=== PATIENT | male | born 1935 | race Caucasian/White ===

== ENCOUNTER 2018-03-24 18:31 | Inpatient (IN) | payer OTHER ==
[~2018-03-24] VITALS: Ht 170.2 cm; Wt 66.0 kg
[2018-03-24 20:18] LABS: BASOPHIL % 0.2 % (0-2)
[2018-03-24 20:27] LABS: CALCIUM 9.4 mg/dL (8.5-10.1); CARBON DIOXIDE 30.3 mmol/L (21-32); CHLORIDE SERUM 103 mmol/L (98-107); CREATININE SERUM 1.8 mg/dL (0.7-1.3); GLUCOSE SERUM 115 mg/dL (74-106); PLATELET COUNT 115 x10^3mcL (130-400); POTASSIUM SERUM 4.6 mmol/L (3.5-5.1); RED CELL DISTRIBUTION WIDTH 15.3 % (11.5-14.5); SODIUM SERUM 139 mmol/L (136-145)
[2018-03-24 20:32] LABS: ALBUMIN 3.9 g/dL (3.4-5.0); ALKALINE PHOSPHATASE 63 U/L (46-116); ALT/SGPT 33 U/L (16-63); AST/SGOT 31 U/L (15-37); BILIRUBIN TOTAL 0.87 mg/dL (0.20-1.00); TOTAL PROTEIN, SERUM 7.6 g/dL (6.4-8.2)
[2018-03-24 20:42] LABS: T3 TOTAL 0.98 ng/mL
[2018-03-24] MEDS ORDERED: ALDACTONE25 MG PO (21:08)
[2018-03-24] MEDS ORDERED: GOOD SENSE ASPI81 M3 PO (21:09)
[2018-03-24] MEDS ORDERED: LEVOTHYROXIN0.137 MG PO (21:09)
[2018-03-24] MEDS ORDERED: FUROSEMIDE40 MG PO (21:09)
[2018-03-24 21:12] LABS: FREE T4 1.84 ng/dL (0.76-1.46); FREE THYROXINE INDEX 4.8 ug/dL (1.4-4.5); T4(THYROXINE) 12.6 ug/dL (4.7-13.3)
[2018-03-24 21:37] LABS: CHOLESTEROL/HDL RATIO 3.6; MAGNESIUM 2.3 mg/dL (1.8-2.4); PHOSPHOROUS 3.5 mg/dL (2.5-4.9)
[2018-03-24 21:45] VITALS: BP 114/49
[2018-03-24 23:46] LABS: microscopic required? NO
[2018-03-24 23:57] LABS: UA SPECIFIC GRAVITY 1.015 (1.005-1.035); urine erythrocyte NEGATIVE (NEGATIVE)
[2018-03-25 06:33] LABS: BASOPHIL % 0.2 % (0-2)
[2018-03-25 06:45] LABS: CALCIUM 9.1 mg/dL (8.5-10.1); CARBON DIOXIDE 28.5 mmol/L (21-32); CHLORIDE SERUM 105 mmol/L (98-107); CREATININE SERUM 1.8 mg/dL (0.7-1.3); GLUCOSE SERUM 111 mg/dL (74-106); PLATELET COUNT 100 x10^3mcL (130-400); POTASSIUM SERUM 5.1 mmol/L (3.5-5.1); RED CELL DISTRIBUTION WIDTH 14.9 % (11.5-14.5); SODIUM SERUM 140 mmol/L (136-145)
[2018-03-25 09:40] VITALS: BP 116/49
[2018-03-25 09:54] VITALS: BP 116/49
[2018-03-25 16:34] VITALS: BP 110/53
[2018-03-25 21:53] VITALS: BP 114/57
[2018-03-26 05:20] VITALS: BP 106/49
[2018-03-26 06:45] LABS: CALCIUM 8.9 mg/dL (8.5-10.1); CARBON DIOXIDE 29.5 mmol/L (21-32); CHLORIDE SERUM 106 mmol/L (98-107); CREATININE SERUM 1.7 mg/dL (0.7-1.3); GLUCOSE SERUM 101 mg/dL (74-106); MAGNESIUM 2.1 mg/dL (1.8-2.4); PHOSPHOROUS 3.7 mg/dL (2.5-4.9); SODIUM SERUM 140 mmol/L (136-145)
[2018-03-26 07:00] LABS: BASOPHIL % 0.3 % (0-2)
[2018-03-26 07:10] LABS: PLATELET COUNT 92 x10^3mcL (130-400); RED CELL DISTRIBUTION WIDTH 14.9 % (11.5-14.5)
[2018-03-26 08:32] VITALS: BP 110/48
[2018-03-26 12:50] VITALS: BP 103/49
[2018-03-26 16:02] VITALS: BP 99/58
[2018-03-26 20:45] VITALS: BP 101/50
[2018-03-27 05:31] VITALS: BP 100/44
[2018-03-27 06:40] LABS: BASOPHIL % 0.2 % (0-2); RED CELL DISTRIBUTION WIDTH 14.2 % (11.5-14.5)
[2018-03-27 06:54] LABS: PLATELET COUNT 73 x10^3mcL (130-400)
[2018-03-27 07:22] LABS: CALCIUM 8.8 mg/dL (8.5-10.1); CARBON DIOXIDE 27.7 mmol/L (21-32); CHLORIDE SERUM 106 mmol/L (98-107); CREATININE SERUM 1.8 mg/dL (0.7-1.3); GLUCOSE SERUM 131 mg/dL (74-106); MAGNESIUM 1.8 mg/dL (1.8-2.4); PHOSPHOROUS 3.3 mg/dL (2.5-4.9); POTASSIUM SERUM 4.9 mmol/L (3.5-5.1); SODIUM SERUM 141 mmol/L (136-145)
[2018-03-27 08:19] VITALS: BP 95/43
[2018-03-27 12:16] VITALS: BP 99/45
[2018-03-27 16:31] VITALS: BP 101/46
[2018-03-27 21:46] VITALS: BP 101/44
[2018-03-28 05:30] VITALS: BP 100/46
[2018-03-28 06:17] LABS: BASOPHIL % 0.1 % (0-2); RED CELL DISTRIBUTION WIDTH 14.5 % (11.5-14.5)
[2018-03-28 06:28] LABS: CALCIUM 8.5 mg/dL (8.5-10.1); CARBON DIOXIDE 27.2 mmol/L (21-32); CHLORIDE SERUM 103 mmol/L (98-107); CREATININE SERUM 1.8 mg/dL (0.7-1.3); GLUCOSE SERUM 105 mg/dL (74-106); PHOSPHOROUS 3.3 mg/dL (2.5-4.9); SODIUM SERUM 134 mmol/L (136-145)
[2018-03-28 07:36] LABS: PLATELET COUNT 74 x10^3mcL (130-400)
[2018-03-28 10:40] VITALS: BP 97/49
[2018-03-28 14:11] VITALS: BP 97/43
[2018-03-28 18:56] VITALS: BP 103/41
[2018-03-28 20:56] VITALS: BP 98/51
[2018-03-29] VITALS (7 sets, daily range): BP systolic 101–103; BP diastolic 44–58
[2018-03-29 07:18] LABS: BASOPHIL % 0.4 % (0-2); RED CELL DISTRIBUTION WIDTH 13.9 % (11.5-14.5)
[2018-03-29 07:19] LABS: PLATELET COUNT 89 x10^3mcL (130-400)
[2018-03-29 07:46] LABS: CALCIUM 8.9 mg/dL (8.5-10.1); CARBON DIOXIDE 27.9 mmol/L (21-32); CHLORIDE SERUM 104 mmol/L (98-107); CREATININE SERUM 1.6 mg/dL (0.7-1.3); GLUCOSE SERUM 102 mg/dL (74-106); POTASSIUM SERUM 5.1 mmol/L (3.5-5.1); SODIUM SERUM 138 mmol/L (136-145)
[2018-03-29] MEDS ORDERED: FERROUS SULFAT325 M2 PO (10:36)
[2018-03-29] MEDS ORDERED: VITAMIN C PURE500 MG PO (10:36)
[2018-03-29] MEDS ORDERED: COR3 PO (10:44)
[2018-03-29] MEDS ORDERED: APAP/HYDROCODON1 T13 PO (10:47)
[2018-03-29] MEDS ORDERED: ENTRESTO1 TA2 PO (11:45)
== END 2018-03-29 22:30 | DRG 469 ==
LOC: ED 18:31 → MU 20:01 → DU 20:01 → MU 21:20 → DU 03-25 09:24
PROVIDERS: Emergency Medicine; Family Medicine; Internal Medicine; Neuromusculoskeletal Medicine, Sports Medicine
PROC: 0SRS03A Replacement of Left Hip Joint, Femoral Surface with Ceramic Synthetic Substitute, Uncemented, Open Approach (ICD-10-PCS; principal; 2018-03-26 09:00)
DX: S72.012A Unspecified intracapsular fracture of left femur, initial encounter for closed fracture (principal); N17.0 Acute kidney failure with tubular necrosis; I50.43 Acute on chronic combined systolic (congestive) and diastolic (congestive) heart failure; I42.0 Dilated cardiomyopathy; D62 Acute posthemorrhagic anemia; E03.9 Hypothyroidism, unspecified; I11.0 Hypertensive heart disease with heart failure; E86.0 Dehydration; D69.6 Thrombocytopenia, unspecified; S13.4XXA Sprain of ligaments of cervical spine, initial encounter; I48.91 Unspecified atrial fibrillation; I25.10 Atherosclerotic heart disease of native coronary artery without angina pectoris; Y93.89 Activity, other specified; W17.89XA Other fall from one level to another, initial encounter; Y92.018 Other place in single-family (private) house as the place of occurrence of the external cause; Z95.1 Presence of aortocoronary bypass graft; Z95.810 Presence of automatic (implantable) cardiac defibrillator
CPT/HCPCS: 83880; 84439; 94150; 97110-GP; 97116-GP; 97530-GP; C1776; J0690; J1644; J2250; J2270; J2405; J2916; J3010; J7030; J7040; J7120; J7620; Q0092